=== PATIENT | female | born 2000 | race Caucasian/White ===

== ENCOUNTER 2022-06-30 15:33 | Emergency (ER) | payer SELFPAY ==
[~2022-06-30] VITALS: Ht 170.1 cm; Wt 108.9 kg
[2022-06-30 16:16] LABS: BASO % 0.3 % (0.0-1.0); EOS % 0.1 % (1.0-4.0); HEMATOCRIT 42.8 % (37.0-47.0); LYMPH # 2.2 10*3/uL (1.3-4.4); LYMPH % 30.5 % (27.0-41.0); MEAN CORPUSCULAR HGB 29.9 pg (27.0-31.0); MEAN CORPUSCULAR HGB CONC 33.6 g/dl (33.0-37.0); MEAN PLATELET VOLUME 10.2 fl (9.6-12.3); MONO # 0.4 10*3/uL (0.1-1.0); MONO % 5.4 % (3.0-9.0); NEUT # 4.5 10*3/uL (2.3-7.9); NEUT % 63.4 % (47.0-73.0); PLATELET COUNT AUTOMATED 259 10*3/uL (130-400); RED BLOOD COUNT 4.81 10*6/uL (4.10-5.10); RED CELL DISTRI WIDTH 12.7 % (0-14.5); WHITE BLOOD COUNT 7.1 10*3/uL (4.8-10.8)
[2022-06-30 16:16] LABS: BILIRUBIN Negative (Negative); BLOOD Negative (Negative); CLARITY Cloudy (Clear); COLOR Yellow (Yellow); GLUCOSE Negative (Negative); KETONE Negative (Negative); LEUKO ESTERASE Negative (Negative); NITRITE Negative (Negative); SPECIFIC GRAVITY 1.015 (1.001-1.030); UROBILINOGEN 0.2 E.U./dl (0.0-1.0)
[2022-06-30 16:37] LABS: ALKALINE PHOSPHATASE 97 U/L (45-117); BUN 5 mg/dl (7-24); CHLORIDE 108 mmol/L (98-107); CREATININE 0.78 mg/dL (0.55-1.02); LIPASE 104 U/L (73-393); POTASSIUM 3.6 mmol/L (3.5-5.1); SGOT/AST 14 IU/L (3-35); SGPT/ALT 20 U/L (12-78); SODIUM 141 mmol/L (136-145)
[2022-06-30 16:43] LABS: BACTERIA 1+; WBC 0-2 wbc/hpf (0-5)
[2022-06-30] MEDS ORDERED: METRONIDAZOLE500 M1 PO (19:35)
[2022-06-30] MEDS ORDERED: CIPRO500 MG PO (19:35)
== END 2022-06-30 19:48 | disposition home or self-care (01) ==
LOC: ED 15:33
PROVIDERS: Nurse Practitioner Family
DX: K52.9 Noninfective gastroenteritis and colitis, unspecified (principal)

== ENCOUNTER 2022-11-13 03:33 | Emergency (ER) | payer MEDICAID ==
[~2022-11-13] VITALS: Ht 170.1 cm; Wt 125.2 kg
[~2022-11-13 03:33] MED LIST: CIPRO500 MG PO; METRONIDAZOLE500 M1 PO
[2022-11-13 05:34] LABS: BILIRUBIN Negative (Negative); BLOOD Negative (Negative); CLARITY Clear (Clear); COLOR Yellow (Yellow); GLUCOSE Negative (Negative); KETONE Negative (Negative); LEUKO ESTERASE 1+ (Negative); NITRITE Negative (Negative); PH 6.5 (4.5-8.0); SPECIFIC GRAVITY <= 1.005 (1.001-1.030); UROBILINOGEN 0.2 E.U./dl (0.0-1.0)
[2022-11-13 06:28] LABS: BACTERIA 2+
[2022-11-13] MEDS ORDERED: CEPHALEXIN500 M1 PO (06:31)
== END 2022-11-13 06:41 | disposition home or self-care (01) ==
LOC: ED 03:33
PROVIDERS: Emergency Medicine
DX: O23.91 Unspecified genitourinary tract infection in pregnancy, first trimester (principal); O99.511 Diseases of the respiratory system complicating pregnancy, first trimester; J06.9 Acute upper respiratory infection, unspecified; Z3A.11 11 weeks gestation of pregnancy

== ENCOUNTER 2023-06-05 14:40 | Emergency (ER) | payer OTHER ==
[~2023-06-05] VITALS: Ht 170.1 cm; Wt 129.3 kg
[~2023-06-05 14:40] MED LIST changes: +CEPHALEXIN500 M1 PO
[2023-06-05 16:04] LABS: BILIRUBIN Negative (Negative); BLOOD 3+ (Negative); CLARITY Clear (Clear); COLOR Orange (Yellow); GLUCOSE Negative (Negative); KETONE Negative (Negative); LEUKO ESTERASE 3+ (Negative); NITRITE Negative (Negative); PH 7.5 (4.5-8.0); SPECIFIC GRAVITY <= 1.005 (1.001-1.030); UROBILINOGEN 0.2 E.U./dl (0.0-1.0)
[2023-06-05 16:10] LABS: BASO % 0.4 % (0.0-1.0); EOS # 0.1 10*3/uL (0.0-0.4); EOS % 1.4 % (1.0-4.0); LYMPH # 2.1 10*3/uL (1.3-4.4); LYMPH % 25.4 % (27.0-41.0); MEAN CELL VOLUME 88.8 fl (81.0-99.0); MEAN CORPUSCULAR HGB 30.4 pg (27.0-31.0); MEAN CORPUSCULAR HGB CONC 34.2 g/dl (33.0-37.0); MEAN PLATELET VOLUME 10.5 fl (9.6-12.3); MONO # 0.3 10*3/uL (0.1-1.0); NEUT # 5.7 10*3/uL (2.3-7.9); NEUT % 68.4 % (47.0-73.0); PLATELET COUNT AUTOMATED 263 10*3/uL (130-400); RED BLOOD COUNT 3.49 10*6/uL (4.10-5.10); RED CELL DISTRI WIDTH 13.9 % (0-14.5); WHITE BLOOD COUNT 8.3 10*3/uL (4.8-10.8)
[2023-06-05 16:14] LABS: BACTERIA 2+; RBC 31-40 rbc/hpf (0-2); WBC 21-30 wbc/hpf (0-5)
[2023-06-05 16:29] LABS: ACT PARTIAL THROMBO TIME 27.1 SECONDS (20.0-32.1); INTERNATIONAL NORM RATIO 0.9 (2.0-3.5)
[2023-06-05 16:34] LABS: ALKALINE PHOSPHATASE 134 U/L (46-116); BUN 7 mg/dl (9-23); CHLORIDE 111 mmol/L (98-107); LIPASE 32 U/L (12-53); POTASSIUM 3.3 mmol/L (3.4-5.1); SGPT/ALT 15 U/L (10-49); TOTAL PROTEIN 5.8 gm/dL (6.0-8.0)
[2023-06-05] MEDS ORDERED: NORMODYNE,TRAN200 MG PO (17:21)
[2023-06-05] MEDS ORDERED: CIPRO500 MG PO (17:21)
== END 2023-06-05 18:20 | disposition home or self-care (01) ==
LOC: ED 14:40
PROVIDERS: Internal Medicine
DX: I10 Essential (primary) hypertension (principal); R60.9 Edema, unspecified; R51.9 Headache, unspecified; Z88.1 Allergy status to other antibiotic agents; Z79.899 Other long term (current) drug therapy

== ENCOUNTER → 2023-08-30 | Outpatient (CLI) | payer OTHER ==
[~2023-08-30] MED LIST changes: +NORMODYNE,TRAN200 MG PO
[2023-08-30 09:32] LABS: BASO % 0.4 % (0.0-1.0); EOS % 0.6 % (1.0-4.0); HEMATOCRIT 40.7 % (37.0-47.0); LYMPH % 37.8 % (27.0-41.0); MEAN CELL VOLUME 84.8 fl (81.0-99.0); MEAN CORPUSCULAR HGB 28.1 pg (27.0-31.0); MEAN CORPUSCULAR HGB CONC 33.2 g/dl (33.0-37.0); MEAN PLATELET VOLUME 10.9 fl (9.6-12.3); MONO # 0.3 10*3/uL (0.1-1.0); MONO % 5.8 % (3.0-9.0); NEUT # 2.9 10*3/uL (2.3-7.9); NEUT % 55.2 % (47.0-73.0); PLATELET COUNT AUTOMATED 236 10*3/uL (130-400); RED CELL DISTRI WIDTH 13.4 % (0-14.5); WHITE BLOOD COUNT 5.2 10*3/uL (4.8-10.8)
[2023-08-30 09:58] LABS: FREE T4 1.24 ng/dl (0.89-1.76)
== END | disposition home or self-care (01) ==
LOC: LAB 09:13
PROVIDERS: ATTEND Obstetrics & Gynecology
DX: M41.86 Other forms of scoliosis, lumbar region (principal); N93.9 Abnormal uterine and vaginal bleeding, unspecified

== ENCOUNTER 2024-11-02 21:01 | Emergency (ER) | payer OTHER ==
[~2024-11-02] VITALS: Ht 170.1 cm; Wt 113.4 kg
[2024-11-02] MEDS ORDERED: Lidocaine Hydrochloride 5 ML AMP SC ONE (22:05)
[2024-11-02] MEDS ORDERED: Gelatin Sponge 1 EACH SPON T ONE (22:05)
[2024-11-02] MEDS ORDERED: CEPHALEXIN 500 MG CAP PO ONE (22:05)
[2024-11-02] MEDS ORDERED: CEPHALEXIN500 M1 PO (22:08)
== END 2024-11-02 22:20 | disposition home or self-care (01) ==
LOC: ED 21:01
DX: S61.210A Laceration without foreign body of right index finger without damage to nail, initial encounter (principal); I10 Essential (primary) hypertension; Z88.1 Allergy status to other antibiotic agents; Z79.2 Long term (current) use of antibiotics; W26.0XXA Contact with knife, initial encounter; Y93.89 Activity, other specified; Y92.89 Other specified places as the place of occurrence of the external cause; Y99.0 Civilian activity done for income or pay